=== PATIENT | female | born 1945 | race Caucasian/White ===

== ENCOUNTER → 2018-06-15 | Outpatient (CLI) | payer MEDICARE | END | disposition home or self-care (01) | LOC: CFH 08:04 | PROVIDERS: ATTEND Nurse Practitioner Primary Care | DX: Z12.31 Encounter for screening mammogram for malignant neoplasm of breast (principal); Z13.820 Encounter for screening for osteoporosis; M85.88 Other specified disorders of bone density and structure, other site; R92.1 Mammographic calcification found on diagnostic imaging of breast | CPT/HCPCS: 77063; 77080; 77067 ==

== ENCOUNTER → 2019-06-18 | Outpatient (CLI) | payer MEDICARE | END | disposition home or self-care (01) | LOC: CFH 10:30 | PROVIDERS: ATTEND Nurse Practitioner Primary Care | DX: Z12.31 Encounter for screening mammogram for malignant neoplasm of breast (principal) | CPT/HCPCS: 77063; 77067 ==

== ENCOUNTER → 2020-07-07 | Outpatient (CLI) | payer MEDICARE | END | disposition home or self-care (01) | LOC: CFH 12:48 | PROVIDERS: ATTEND Physician Assistant | DX: N63.42 Unspecified lump in left breast, subareolar (principal) | CPT/HCPCS: 76642; 77065 ==

== ENCOUNTER 2020-07-22 08:11 | Outpatient (CLI) | payer MEDICARE ==
[2020-07-22] MEDS ORDERED: SODIUM BICARBONATE 4.2%, 5ML ONE (08:30)
[2020-07-22] MEDS ORDERED: LIDOCAINE 1%-EPI 1:100K, 20ML ONE (08:30)
[2020-07-22] MEDS ORDERED: LIDOCAINE 1%, 20ML ONE (08:30)
== END 2020-07-22 23:59 | disposition home or self-care (01) ==
LOC: CFH 08:11
PROVIDERS: ATTEND Physician Assistant
DX: N63.42 Unspecified lump in left breast, subareolar (principal); N60.82 Other benign mammary dysplasias of left breast; N60.42 Mammary duct ectasia of left breast; N62 Hypertrophy of breast
CPT/HCPCS: 19081; 88305; 77065